=== PATIENT | female | born 1950 | race African-American/Black ===

== ENCOUNTER 2017-05-28 13:53 | Inpatient (IN) | payer MEDICARE, MEDICAID ==
[~2017-05-28] VITALS: Ht 165.1 cm; Wt 93.5 kg
[~2017-05-28 13:53] MED LIST: ASA; B12; CRESTOR; DIOVAN; FOLIC ACID; HYDRALAZINE; RAMIPRIL; RENVELA
[2017-05-28] MEDS ORDERED: MORPHINE SULFATE 4 MG/ML CPJ (NOT FOR IM USE) IV STA (15:19)
[2017-05-28] MEDS ORDERED: ONDANSETRON HCL 4MG/2ML VIAL IV STA (15:19)
[2017-05-28 16:08] LABS: BASOPHILS % 0.4 % (0.0-2.0); EOSINOPHILS % 1.2 % (0.0-5.0); HEMATOCRIT. 30.1 % (36.0-48.0); HEMOGLOBIN. 9.7 g/dL (12.0-16.0); MEAN CORPUSCULAR VOLUME 87.2 fL (81.0-99.0); MEAN PLATELET VOLUME 7.9 fl (7.4-10.4); NEUTROPHILS % 79.4 % (40.0-76.0); PLATELET 213 x1000/uL (130-400); RED BLOOD CELL COUNT 3.46 mill/uL (4.2-5.4); RED CELL DISTRIBUTION WIDTH 19.9 % (11.6-14.6)
[2017-05-28 16:11] LABS: INR 1.1; PARTIAL THROMBOPLASTIN TIME 28.4 sec (23.4-31.0)
[2017-05-28] MEDS ORDERED: MORPHINE SULFATE 4 MG/ML CPJ (NOT FOR IM USE) IV ONE (17:00)
[2017-05-28] MEDS ORDERED: NITROGLYCERIN 0.4MG TABLET SL SL PRN (19:15)
[2017-05-28] MEDS ORDERED: LORAZEPAM 2MG/ML CPJ IV PRN (19:15)
[2017-05-28] MEDS ORDERED: SODIUM POLYSTYRENE SULFONATE 15 G/60 ML BOT PO NR (19:15)
[2017-05-28] MEDS ORDERED: GUAIFENESIN 200MG/10ML SUGAR FREE UDC PO PRN (19:15)
[2017-05-28] MEDS ORDERED: IPRATROPIUM/ALBUTEROL 0.5-3(2.5)MG/3ML NEB INH PRN (19:15)
[2017-05-28] MEDS ORDERED: ACETAMINOPHEN 325MG TABLET PO PRN (19:15)
[2017-05-28] MEDS ORDERED: MAGNESIUM/ALUMINUM HYDROXIDE/SIMETHICONE 30ML UDC PO PRN (19:15)
[2017-05-28] MEDS ORDERED: DIPHENHYDRAMINE 50MG/ML VIAL IV PRN (19:15)
[2017-05-28] MEDS ORDERED: CLONIDINE 0.1MG TABLET PO PRN (19:15)
[2017-05-28] MEDS ORDERED: ONDANSETRON HCL 4MG/2ML VIAL IV PRN (19:15)
[2017-05-28] MEDS ORDERED: DOCUSATE SODIUM 100MG CAPSULE PO PRN (19:15)
[2017-05-28] MEDS ORDERED: TRAMADOL 50MG TABLET PO PRN (19:32)
[2017-05-28] MEDS ORDERED: NA PHOS,M-B/NA PHOS,DI-BA ENEMA 118ML PR PRN (20:00)
[2017-05-28] MEDS ORDERED: INSULIN REGULAR (HUMULIN R) UD 100 UNITS/ML SYR IV ONE (20:30)
[2017-05-28] MEDS ORDERED: ZOLPIDEM TARTRATE 5MG TABLET PO PRN (20:30)
[2017-05-28] MEDS ORDERED: DEXTROSE 50% WATER 50ML SYRINGE IV ONE (20:30)
[2017-05-28] MEDS: MORPHINE SULFATE 4 MG/ML CPJ (NOT FOR IM USE) IV PRN (20:57)
[2017-05-28 23:16] VITALS: BP 100/58
[2017-05-28 23:21] VITALS: BP 100/58
[2017-05-28] MEDS ORDERED: FOLI-43 PO (23:37)
[2017-05-28] MEDS ORDERED: DOCU-138 PO (23:37)
[2017-05-28] MEDS ORDERED: ASPI-986 PO (23:37)
[2017-05-28] MEDS ORDERED: SEVE800T8 PO (23:39)
[2017-05-29] MEDS: MORPHINE SULFATE 4 MG/ML CPJ (NOT FOR IM USE) IV PRN ×4 (02:06→21:29)
[2017-05-29 04:00] VITALS: BP 98/55
[2017-05-29] MEDS ORDERED: DIPHENHYDRAMINE 50MG/ML VIAL IV SCH (06:45)
[2017-05-29] MEDS: SEVELAMER CARBONATE 800 MG TABLET PO SCH ×3 (07:58→18:48)
[2017-05-29 08:00] VITALS: BP 143/81
[2017-05-29] MEDS ORDERED: SEVELAMER CARBONATE 800 MG TABLET PO SCH (08:10)
[2017-05-29] MEDS: LISINOPRIL 40MG TABLET PO SCH (09:00)
[2017-05-29] MEDS: AMLODIPINE 10MG TABLET PO SCH (09:00)
[2017-05-29] MEDS: FAMOTIDINE 20MG/2ML VIAL IV SCH (09:26)
[2017-05-29] MEDS: DIPHENHYDRAMINE 50MG/ML VIAL IV PRN (09:26)
[2017-05-29] MEDS ORDERED: METHADONE HCL 10MG TABLET PO PRN (11:00)
[2017-05-29 12:00] VITALS: BP 98/45
[2017-05-29] MEDS: FOLIC ACID/VITAMIN B COMP W-C TABLET PO SCH (13:06)
[2017-05-29] MEDS: ENOXAPARIN 40MG/0.4ML SYR SUBCUT SCH (13:07)
[2017-05-29 14:56] VITALS: BP 103/52
[2017-05-29 16:00] VITALS: BP 106/60
[2017-05-29] MEDS: CINACALCET HCL 30MG TABLET PO SCH (18:49)
[2017-05-29 20:00] VITALS: BP 100/52
[2017-05-29] MEDS ORDERED: EPOETIN ALFA 10000UNITS/ML VIAL SUBCUT SCH (21:00)
[2017-05-29] MEDS: ATORVASTATIN CALCIUM 10MG TABLET PO SCH (21:24)
[2017-05-30 00:05] VITALS: BP 118/68
[2017-05-30] MEDS: MORPHINE SULFATE 4 MG/ML CPJ (NOT FOR IM USE) IV PRN ×3 (03:06→17:18)
[2017-05-30 04:00] VITALS: BP 105/56
[2017-05-30 08:00] VITALS: BP 108/51
[2017-05-30] MEDS: LISINOPRIL 40MG TABLET PO SCH (09:00)
[2017-05-30] MEDS: SEVELAMER CARBONATE 800 MG TABLET PO SCH ×3 (09:13→17:58)
[2017-05-30] MEDS: FOLIC ACID/VITAMIN B COMP W-C TABLET PO SCH (09:13)
[2017-05-30] MEDS: AMLODIPINE 10MG TABLET PO SCH (09:14)
[2017-05-30] MEDS: ENOXAPARIN 40MG/0.4ML SYR SUBCUT SCH (09:19)
[2017-05-30] MEDS: FAMOTIDINE 20MG/2ML VIAL IV SCH (09:44)
[2017-05-30 12:00] VITALS: BP 97/48
[2017-05-30 16:00] VITALS: BP 138/69
[2017-05-30] MEDS: CINACALCET HCL 30MG TABLET PO SCH (18:12)
[2017-05-30 20:00] VITALS: BP 105/65
[2017-05-30] MEDS: ATORVASTATIN CALCIUM 10MG TABLET PO SCH (20:48)
[2017-05-31] VITALS: BP 100/57
[2017-05-31] MEDS: MORPHINE SULFATE 4 MG/ML CPJ (NOT FOR IM USE) IV PRN ×3 (01:45→20:05)
[2017-05-31 04:00] VITALS: BP 110/60
[2017-05-31] MEDS: DIPHENHYDRAMINE 50MG/ML VIAL IV PRN (07:08)
[2017-05-31 07:42] LABS: HEMATOCRIT 30.7 % (36.0-48.0); HEMOGLOBIN 9.6 g/dL (12.0-16.0); MEAN CORPUSCULAR HEMOGLOBIN 27.4 pg (28.0-32.0); MEAN CORPUSCULAR VOLUME 87.4 fL (81.0-99.0); PLATELET 198 x1000/uL (130-400); RED BLOOD CELL COUNT 3.51 mill/uL (4.2-5.4); RED CELL DISTRIBUTION WIDTH 20.1 % (11.6-14.6)
[2017-05-31 08:00] VITALS: BP 122/58
[2017-05-31] MEDS: SEVELAMER CARBONATE 800 MG TABLET PO SCH ×3 (08:10→18:16)
[2017-05-31] MEDS: AMLODIPINE 10MG TABLET PO SCH (09:00)
[2017-05-31] MEDS: LISINOPRIL 40MG TABLET PO SCH (09:00)
[2017-05-31] MEDS: ENOXAPARIN 40MG/0.4ML SYR SUBCUT SCH (11:58)
[2017-05-31] MEDS: FOLIC ACID/VITAMIN B COMP W-C TABLET PO SCH (11:58)
[2017-05-31 12:00] VITALS: BP 140/87
[2017-05-31] MEDS: FAMOTIDINE 20MG/2ML VIAL IV SCH (12:23)
[2017-05-31] MEDS: CINACALCET HCL 30MG TABLET PO SCH (18:15)
[2017-05-31 20:00] VITALS: BP 111/71
[2017-05-31] MEDS: ATORVASTATIN CALCIUM 10MG TABLET PO SCH (20:05)
[2017-05-31] MEDS ORDERED: EPOETIN ALFA 4000UNITS/ML VIAL SUBCUT SCH (21:00)
[2017-06-01] VITALS: BP 105/51
[2017-06-01] MEDS: MORPHINE SULFATE 4 MG/ML CPJ (NOT FOR IM USE) IV PRN ×4 (03:17→21:18)
[2017-06-01 04:00] VITALS: BP 108/68
[2017-06-01 08:00] VITALS: BP 140/80
[2017-06-01] MEDS: FOLIC ACID/VITAMIN B COMP W-C TABLET PO SCH (08:30)
[2017-06-01] MEDS: SEVELAMER CARBONATE 800 MG TABLET PO SCH ×3 (08:30→17:55)
[2017-06-01] MEDS: ENOXAPARIN 40MG/0.4ML SYR SUBCUT SCH (08:30)
[2017-06-01] MEDS: FAMOTIDINE 20MG/2ML VIAL IV SCH (08:31)
[2017-06-01] MEDS: LISINOPRIL 40MG TABLET PO SCH (08:31)
[2017-06-01] MEDS: AMLODIPINE 10MG TABLET PO SCH (08:31)
[2017-06-01 12:00] VITALS: BP 97/48
[2017-06-01 16:00] VITALS: BP 103/59
[2017-06-01] MEDS: CINACALCET HCL 30MG TABLET PO SCH (18:03)
[2017-06-01 20:00] VITALS: BP 124/80
[2017-06-01] MEDS: ATORVASTATIN CALCIUM 10MG TABLET PO SCH (21:18)
[2017-06-02] VITALS: BP 106/61
[2017-06-02 04:00] VITALS: BP 109/50
[2017-06-02] MEDS: MORPHINE SULFATE 4 MG/ML CPJ (NOT FOR IM USE) IV PRN ×3 (04:41→15:25)
[2017-06-02 06:55] LABS: BASOPHILS % 0.7 % (0.0-2.0); EOSINOPHILS % 2.7 % (0.0-5.0); HEMATOCRIT. 30.5 % (36.0-48.0); HEMOGLOBIN. 9.4 g/dL (12.0-16.0); LYMPHOCYTES % 15.7 % (20.0-50.0); MEAN CORPUSCULAR HEMOGLOBIN 27.1 pg (28.0-32.0); MEAN CORPUSCULAR VOLUME 88.1 fL (81.0-99.0); MEAN PLATELET VOLUME 8.3 fl (7.4-10.4); MONOCYTES % 11.3 % (2.0-8.0); NEUTROPHILS % 69.6 % (40.0-76.0); PLATELET 202 x1000/uL (130-400); RED BLOOD CELL COUNT 3.46 mill/uL (4.2-5.4); RED CELL DISTRIBUTION WIDTH 20.3 % (11.6-14.6)
[2017-06-02 08:01] VITALS: BP 118/49
[2017-06-02] MEDS: FAMOTIDINE 20MG/2ML VIAL IV SCH (08:34)
[2017-06-02] MEDS: FOLIC ACID/VITAMIN B COMP W-C TABLET PO SCH (08:34)
[2017-06-02] MEDS: ENOXAPARIN 40MG/0.4ML SYR SUBCUT SCH (08:35)
[2017-06-02] MEDS: LISINOPRIL 40MG TABLET PO SCH (08:35)
[2017-06-02] MEDS: SEVELAMER CARBONATE 800 MG TABLET PO SCH ×2 (08:35→13:25)
[2017-06-02] MEDS: AMLODIPINE 10MG TABLET PO SCH (08:35)
[2017-06-02 12:00] VITALS: BP 106/50
[2017-06-02 16:11] VITALS: BP 114/55
[2017-06-02 16:13] VITALS: BP 114/55
== END 2017-06-02 17:20 | DRG 535 ==
LOC: ER 14:23 → SUPCPDRO 19:15 → 7WST 20:24 → ENRESERV 21:41
PROVIDERS: ADMIT Internal Medicine; ATTEND Internal Medicine
DX: S32.591A Other specified fracture of right pubis, initial encounter for closed fracture (principal); I50.33 Acute on chronic diastolic (congestive) heart failure; E87.0 Hyperosmolality and hypernatremia; N18.6 End stage renal disease; N25.81 Secondary hyperparathyroidism of renal origin; I13.2 Hypertensive heart and chronic kidney disease with heart failure and with stage 5 chronic kidney disease, or end stage renal disease; W01.0XXA Fall on same level from slipping, tripping and stumbling without subsequent striking against object, initial encounter; Y93.01 Activity, walking, marching and hiking; E21.3 Hyperparathyroidism, unspecified; D63.1 Anemia in chronic kidney disease; E66.9 Obesity, unspecified; Z82.49 Family history of ischemic heart disease and other diseases of the circulatory system; Z90.710 Acquired absence of both cervix and uterus; Z83.3 Family history of diabetes mellitus; Z99.2 Dependence on renal dialysis; Z68.34 Body mass index [BMI] 34.0-34.9, adult; Y92.89 Other specified places as the place of occurrence of the external cause; Y99.8 Other external cause status; E87.5 Hyperkalemia
CPT/HCPCS: 36415; 71010; 73522; 73552; 73700; 80048; 80061; 83036; 83970; 85025; 85027; 85610; 85730; 93005; 93306; 93970; 96374; 96375; 96376; 97116; 97162; 99285; J0885; J1200; J1650; J1815; J2270; J2405; J3490; J7030

== ENCOUNTER 2017-06-02 17:30 | Inpatient (IN) | payer MEDICARE, MEDICAID ==
[~2017-06-02] VITALS: Ht 163.8 cm; Wt 93.9 kg
[~2017-06-02 17:30] MED LIST changes: -ASA; +ASPI-986 PO; -B12; -CRESTOR; -DIOVAN; +DOCU-138 PO; +FOLI-43 PO; -FOLIC ACID; -HYDRALAZINE; -RAMIPRIL; -RENVELA; +SEVE800T8 PO
[2017-06-02 18:00] VITALS: BP 107/68
[2017-06-02] MEDS ORDERED: LORAZEPAM 1MG TABLET PO PRN (18:45)
[2017-06-02] MEDS ORDERED: NITROGLYCERIN 0.4MG TABLET SL SL PRN (18:45)
[2017-06-02] MEDS ORDERED: DOCUSATE SODIUM 100MG CAPSULE PO PRN (18:45)
[2017-06-02] MEDS ORDERED: ACETAMINOPHEN 650MG/20.3ML UDC PO PRN (18:45)
[2017-06-02] MEDS ORDERED: HYDROCODONE/ACETAMINOPHEN 5/325MG TABLET PO PRN (18:45)
[2017-06-02] MEDS ORDERED: GUAIFENESIN 200MG/10ML SUGAR FREE UDC PO PRN (18:45)
[2017-06-02] MEDS ORDERED: DIPHENHYDRAMINE 50MG CAPSULE PO PRN ×2 (18:45)
[2017-06-02] MEDS ORDERED: ZOLPIDEM TARTRATE 5MG TABLET PO PRN (18:45)
[2017-06-02] MEDS ORDERED: MAGNESIUM/ALUMINUM HYDROXIDE/SIMETHICONE 30ML UDC PO PRN (18:45)
[2017-06-02] MEDS ORDERED: CLONIDINE 0.1MG TABLET PO PRN (18:45)
[2017-06-02] MEDS ORDERED: IPRATROPIUM/ALBUTEROL 0.5-3(2.5)MG/3ML NEB HHN PRN (18:45)
[2017-06-02] MEDS ORDERED: NA PHOS,M-B/NA PHOS,DI-BA ENEMA 118ML PR PRN (18:45)
[2017-06-02] MEDS ORDERED: ACETAMINOPHEN 325MG TABLET PO PRN (19:06)
[2017-06-02 19:13] LABS: BASOPHILS % 0.7 % (0.0-2.0); CARBON DIOXIDE 24 mEq/L (21-32); CHLORIDE 98 mEq/L (98-107); EOSINOPHILS % 2.8 % (0.0-5.0); HEMATOCRIT. 28.9 % (36.0-48.0); HEMOGLOBIN. 8.9 g/dL (12.0-16.0); LYMPHOCYTES % 15.3 % (20.0-50.0); MEAN CORPUSCULAR HEMOGLOBIN 27.3 pg (28.0-32.0); MEAN CORPUSCULAR VOLUME 88.5 fL (81.0-99.0); MONOCYTES % 9.6 % (2.0-8.0); NEUTROPHILS % 71.6 % (40.0-76.0); PLATELET 202 x1000/uL (130-400); RED BLOOD CELL COUNT 3.26 mill/uL (4.2-5.4); RED CELL DISTRIBUTION WIDTH 19.6 % (11.6-14.6)
[2017-06-02] MEDS ORDERED: LORAZEPAM 0.5MG TABLET PO PRN (19:30)
[2017-06-02 20:00] VITALS: BP 118/56
[2017-06-02] MEDS: HYDROCODONE/ACETAMINOPHEN 5/325MG TABLET PO PRN (21:07)
[2017-06-03] MEDS: HYDROCODONE/ACETAMINOPHEN 5/325MG TABLET PO PRN ×3 (02:17→21:42)
[2017-06-03] MEDS: ONDANSETRON HCL 4MG TABLET PO PRN ×3 (06:57→21:12)
[2017-06-03 08:00] VITALS: BP 109/61
[2017-06-03] MEDS: ENOXAPARIN 40MG/0.4ML SYR SUBCUT SCH (08:16)
[2017-06-03] MEDS: LISINOPRIL 40MG TABLET PO SCH (08:16)
[2017-06-03] MEDS: SEVELAMER CARBONATE 800 MG TABLET PO SCH ×3 (08:16→17:10)
[2017-06-03] MEDS ORDERED: SEVELAMER CARBONATE 800 MG TABLET PO SCH (09:00)
[2017-06-03] MEDS ORDERED: ZEMPLAR XX SCH (10:00)
[2017-06-03 10:01] LABS: PHOSPHORUS 5.2 mg/dL (2.5-4.9)
[2017-06-03 10:30] VITALS: BP 138/79
[2017-06-03] MEDS: DIPHENHYDRAMINE 50MG/ML VIAL IV PRN (16:43)
[2017-06-03] MEDS: DOCUSATE SODIUM 100MG CAPSULE PO SCH (17:10)
[2017-06-03 20:00] VITALS: BP 120/60
[2017-06-03] MEDS ORDERED: EPOETIN ALFA 10000UNITS/ML VIAL SUBCUT SCH ×2 (21:00→22:30)
[2017-06-03] MEDS ORDERED: EPOETIN ALFA 4000UNITS/ML VIAL SUBCUT SCH (21:00)
[2017-06-03] MEDS: PARICALCITOL 5 MCG/ML 1ML IV PRN (21:42)
[2017-06-04] MEDS: PANTOPRAZOLE 40MG DR TABLET PO SCH (06:37)
[2017-06-04 08:00] VITALS: BP 108/63
[2017-06-04] MEDS: DOCUSATE SODIUM 100MG CAPSULE PO SCH ×2 (08:08→16:21)
[2017-06-04] MEDS: SEVELAMER CARBONATE 800 MG TABLET PO SCH ×3 (08:08→16:21)
[2017-06-04] MEDS: ENOXAPARIN 40MG/0.4ML SYR SUBCUT SCH (08:09)
[2017-06-04] MEDS: LISINOPRIL 40MG TABLET PO SCH (08:12)
[2017-06-04] MEDS: HYDROCODONE/ACETAMINOPHEN 5/325MG TABLET PO PRN ×3 (08:45→20:10)
[2017-06-04] MEDS ORDERED: PARICALCITOL 5 MCG/ML 1ML IV ONE (10:00)
[2017-06-04 14:45] VITALS: BP 118/67
[2017-06-04 20:00] VITALS: BP 105/49
[2017-06-05] MEDS: HYDROCODONE/ACETAMINOPHEN 5/325MG TABLET PO PRN ×4 (01:25→21:21)
[2017-06-05] MEDS: PANTOPRAZOLE 40MG DR TABLET PO SCH (06:52)
[2017-06-05 07:18] LABS: BASOPHILS % 0.8 % (0.0-2.0); EOSINOPHILS % 3.4 % (0.0-5.0); HEMATOCRIT. 26.5 % (36.0-48.0); HEMOGLOBIN. 8.3 g/dL (12.0-16.0); LYMPHOCYTES % 15.3 % (20.0-50.0); NEUTROPHILS % 66.5 % (40.0-76.0); PLATELET 195 x1000/uL (130-400); RED BLOOD CELL COUNT 3.08 mill/uL (4.2-5.4)
[2017-06-05 07:30] LABS: PHOSPHORUS 5.2 mg/dL (2.5-4.9)
[2017-06-05 08:00] VITALS: BP_SYST 124; BP_DIAS 64; BP_DIAS 67
[2017-06-05] MEDS: DOCUSATE SODIUM 100MG CAPSULE PO SCH ×2 (08:39→17:00)
[2017-06-05] MEDS: ENOXAPARIN 40MG/0.4ML SYR SUBCUT SCH (08:40)
[2017-06-05] MEDS: LISINOPRIL 40MG TABLET PO SCH (08:41)
[2017-06-05] MEDS: SEVELAMER CARBONATE 800 MG TABLET PO SCH ×3 (08:41→21:00)
[2017-06-05] MEDS: LACTULOSE 20G/30ML UDC PO SCH (14:15)
[2017-06-05] MEDS: DIPHENHYDRAMINE 50MG/ML VIAL IV PRN (17:25)
[2017-06-05 20:00] VITALS: BP 123/62
[2017-06-05] MEDS: POLYETHYLENE GLYCOL 3350 (17GM) 1 DOSE PACK PO SCH (21:00)
[2017-06-05] MEDS ORDERED: EPOETIN ALFA 10000UNITS/ML VIAL SUBCUT SCH (21:00)
[2017-06-05] MEDS: PARICALCITOL 5 MCG/ML 1ML IV PRN (21:20)
[2017-06-05] MEDS: EPOETIN ALFA 4000UNITS/ML VIAL SUBCUT SCH (21:21)
[2017-06-06] MEDS: HYDROCODONE/ACETAMINOPHEN 5/325MG TABLET PO PRN ×3 (02:11→21:25)
[2017-06-06] MEDS: PANTOPRAZOLE 40MG DR TABLET PO SCH (06:26)
[2017-06-06 07:14] LABS: HEMATOCRIT. 27.3 % (36.0-48.0); HEMOGLOBIN. 8.7 g/dL (12.0-16.0); MEAN CORPUSCULAR HEMOGLOBIN 27.3 pg (28.0-32.0); PLATELET 209 x1000/uL (130-400); RED BLOOD CELL COUNT 3.17 mill/uL (4.2-5.4); RED CELL DISTRIBUTION WIDTH 19.3 % (11.6-14.6)
[2017-06-06 08:00] VITALS: BP 138/82
[2017-06-06 08:02] LABS: PLATELET ESTIMATE NORMAL
[2017-06-06] MEDS: SEVELAMER CARBONATE 800 MG TABLET PO SCH ×3 (08:16→16:47)
[2017-06-06] MEDS: LISINOPRIL 40MG TABLET PO SCH (08:17)
[2017-06-06] MEDS: FERROUS SULFATE 325MG TABLET PO SCH ×3 (08:17→16:47)
[2017-06-06] MEDS: ENOXAPARIN 40MG/0.4ML SYR SUBCUT SCH (08:18)
[2017-06-06] MEDS: LACTULOSE 20G/30ML UDC PO SCH (08:20)
[2017-06-06] MEDS: DOCUSATE SODIUM 100MG CAPSULE PO SCH ×2 (08:21→16:48)
[2017-06-06 20:00] VITALS: BP 144/76
[2017-06-06] MEDS: POLYETHYLENE GLYCOL 3350 (17GM) 1 DOSE PACK PO SCH (21:00)
[2017-06-07] MEDS: HYDROCODONE/ACETAMINOPHEN 5/325MG TABLET PO PRN ×3 (03:14→18:12)
[2017-06-07] MEDS: PANTOPRAZOLE 40MG DR TABLET PO SCH (06:35)
[2017-06-07 08:00] VITALS: BP 140/71
[2017-06-07] MEDS: LACTULOSE 20G/30ML UDC PO SCH (09:00)
[2017-06-07] MEDS: ENOXAPARIN 40MG/0.4ML SYR SUBCUT SCH (09:00)
[2017-06-07] MEDS ORDERED: PARICALCITOL 5 MCG/ML 1ML IV SCH (09:00)
[2017-06-07] MEDS: FERROUS SULFATE 325MG TABLET PO SCH ×3 (09:06→16:29)
[2017-06-07] MEDS: LISINOPRIL 40MG TABLET PO SCH (09:07)
[2017-06-07] MEDS: DOCUSATE SODIUM 100MG CAPSULE PO SCH ×2 (09:07→16:29)
[2017-06-07] MEDS: SEVELAMER CARBONATE 800 MG TABLET PO SCH ×3 (09:07→16:30)
[2017-06-07] MEDS: DIPHENHYDRAMINE 50MG/ML VIAL IV PRN (18:54)
[2017-06-07] MEDS ORDERED: HEPARIN SODIUM 1,000 UNIT/1ML VIAL IV NR (19:00)
[2017-06-07 20:00] VITALS: BP 157/73
[2017-06-07] MEDS ORDERED: ZOLPIDEM TARTRATE 5MG TABLET PO PRN (20:00)
[2017-06-07] MEDS ORDERED: HYDROCODONE/ACETAMINOPHEN 5/325MG TABLET PO PRN (20:00)
[2017-06-07] MEDS ORDERED: LORAZEPAM 0.5MG TABLET PO PRN (20:00)
[2017-06-07] MEDS: POLYETHYLENE GLYCOL 3350 (17GM) 1 DOSE PACK PO SCH (21:00)
[2017-06-07] MEDS: EPOETIN ALFA 4000UNITS/ML VIAL SUBCUT SCH (22:59)
[2017-06-07] MEDS: PARICALCITOL 5 MCG/ML 1ML IV PRN (22:59)
[2017-06-08] MEDS: HYDROCODONE/ACETAMINOPHEN 5/325MG TABLET PO PRN ×3 (00:20→20:24)
[2017-06-08] MEDS: PANTOPRAZOLE 40MG DR TABLET PO SCH (06:54)
[2017-06-08 07:38] LABS: HEMATOCRIT. 27.8 % (36.0-48.0); HEMOGLOBIN. 8.9 g/dL (12.0-16.0); MEAN CORPUSCULAR HEMOGLOBIN 27.4 pg (28.0-32.0); MEAN CORPUSCULAR VOLUME 85.6 fL (81.0-99.0); MEAN PLATELET VOLUME 7.5 fl (7.4-10.4); PLATELET 233 x1000/uL (130-400); RED BLOOD CELL COUNT 3.25 mill/uL (4.2-5.4); RED CELL DISTRIBUTION WIDTH 19.5 % (11.6-14.6)
[2017-06-08 08:00] VITALS: BP 113/67
[2017-06-08] MEDS: SEVELAMER CARBONATE 800 MG TABLET PO SCH ×3 (08:21→17:32)
[2017-06-08] MEDS: LISINOPRIL 40MG TABLET PO SCH (08:23)
[2017-06-08] MEDS: DOCUSATE SODIUM 100MG CAPSULE PO SCH ×2 (08:24→17:33)
[2017-06-08] MEDS: ENOXAPARIN 40MG/0.4ML SYR SUBCUT SCH (08:24)
[2017-06-08] MEDS: FERROUS SULFATE 325MG TABLET PO SCH ×3 (08:24→17:33)
[2017-06-08] MEDS: LACTULOSE 20G/30ML UDC PO SCH (08:27)
[2017-06-08 09:11] LABS: 25-HYDROXY VITAMIN D3 14 ng/mL (.)
[2017-06-08] MEDS ORDERED: ERGOCALCIFEROL 50000UNITS CAPSULE PO SCH (12:15)
[2017-06-08 14:09] LABS: PLATELET ESTIMATE NORMAL
[2017-06-08 20:00] VITALS: BP 110/51
[2017-06-08] MEDS: POLYETHYLENE GLYCOL 3350 (17GM) 1 DOSE PACK PO SCH (20:20)
[2017-06-09] MEDS: PANTOPRAZOLE 40MG DR TABLET PO SCH (06:06)
[2017-06-09 08:00] VITALS: BP 148/64
[2017-06-09] MEDS: LACTULOSE 20G/30ML UDC PO SCH (09:00)
[2017-06-09] MEDS: SEVELAMER CARBONATE 800 MG TABLET PO SCH ×3 (09:02→16:25)
[2017-06-09] MEDS: DOCUSATE SODIUM 100MG CAPSULE PO SCH ×2 (09:02→16:25)
[2017-06-09] MEDS: LISINOPRIL 40MG TABLET PO SCH (09:02)
[2017-06-09] MEDS: FERROUS SULFATE 325MG TABLET PO SCH ×3 (09:02→16:25)
[2017-06-09] MEDS: ENOXAPARIN 40MG/0.4ML SYR SUBCUT SCH (09:03)
[2017-06-09] MEDS: HYDROCODONE/ACETAMINOPHEN 5/325MG TABLET PO PRN ×2 (09:04→20:28)
[2017-06-09 20:00] VITALS: BP 131/61
[2017-06-09] MEDS: POLYETHYLENE GLYCOL 3350 (17GM) 1 DOSE PACK PO SCH (20:25)
[2017-06-10] MEDS: HYDROCODONE/ACETAMINOPHEN 5/325MG TABLET PO PRN ×3 (04:26→17:16)
[2017-06-10 07:57] VITALS: BP 144/61
[2017-06-10] MEDS: LACTULOSE 20G/30ML UDC PO SCH (09:00)
[2017-06-10] MEDS: DOCUSATE SODIUM 100MG CAPSULE PO SCH ×2 (09:25→17:15)
[2017-06-10] MEDS: FERROUS SULFATE 325MG TABLET PO SCH ×3 (09:25→17:15)
[2017-06-10] MEDS: SEVELAMER CARBONATE 800 MG TABLET PO SCH ×3 (09:26→17:14)
[2017-06-10] MEDS: FAMOTIDINE 20MG TABLET PO SCH (09:26)
[2017-06-10] MEDS: LISINOPRIL 40MG TABLET PO SCH (09:27)
[2017-06-10] MEDS: ENOXAPARIN 40MG/0.4ML SYR SUBCUT SCH (09:28)
[2017-06-10 19:00] VITALS: BP 137/63
[2017-06-10] MEDS: POLYETHYLENE GLYCOL 3350 (17GM) 1 DOSE PACK PO SCH (21:00)
[2017-06-10] MEDS: DIPHENHYDRAMINE 50MG/ML VIAL IV PRN (21:07)
[2017-06-10] MEDS ORDERED: HEPARIN SODIUM 1,000 UNIT/1ML VIAL IV NR (22:00)
[2017-06-11] MEDS: EPOETIN ALFA 4000UNITS/ML VIAL SUBCUT SCH (00:13)
[2017-06-11] MEDS: HYDROCODONE/ACETAMINOPHEN 5/325MG TABLET PO PRN ×4 (00:17→20:48)
[2017-06-11] MEDS: PARICALCITOL 5 MCG/ML 1ML IV PRN (01:53)
[2017-06-11 03:04] VITALS: BP 120/70
[2017-06-11 06:53] LABS: BASOPHILS % 0.9 % (0.0-2.0); EOSINOPHILS % 2.3 % (0.0-5.0); HEMATOCRIT. 29.1 % (36.0-48.0); HEMOGLOBIN. 9.1 g/dL (12.0-16.0); LYMPHOCYTES % 16.2 % (20.0-50.0); MEAN CORPUSCULAR HEMOGLOBIN 26.9 pg (28.0-32.0); MEAN CORPUSCULAR VOLUME 85.5 fL (81.0-99.0); MEAN PLATELET VOLUME 7.6 fl (7.4-10.4); MONOCYTES % 12.9 % (2.0-8.0); NEUTROPHILS % 67.7 % (40.0-76.0); PLATELET 253 x1000/uL (130-400); RED CELL DISTRIBUTION WIDTH 19.8 % (11.6-14.6)
[2017-06-11 08:00] VITALS: BP 120/61
[2017-06-11 08:10] LABS: PHOSPHORUS 3.1 mg/dL (2.5-4.9)
[2017-06-11] MEDS: SEVELAMER CARBONATE 800 MG TABLET PO SCH ×3 (08:13→18:05)
[2017-06-11] MEDS: FERROUS SULFATE 325MG TABLET PO SCH ×3 (08:14→18:04)
[2017-06-11] MEDS: DOCUSATE SODIUM 100MG CAPSULE PO SCH ×2 (08:14→18:04)
[2017-06-11] MEDS: LACTULOSE 20G/30ML UDC PO SCH (08:14)
[2017-06-11] MEDS: FAMOTIDINE 20MG TABLET PO SCH (08:14)
[2017-06-11] MEDS: LISINOPRIL 40MG TABLET PO SCH (08:14)
[2017-06-11] MEDS: ENOXAPARIN 40MG/0.4ML SYR SUBCUT SCH (08:14)
[2017-06-11 20:00] VITALS: BP 122/70
[2017-06-11] MEDS: POLYETHYLENE GLYCOL 3350 (17GM) 1 DOSE PACK PO SCH (20:48)
[2017-06-12] MEDS: HYDROCODONE/ACETAMINOPHEN 5/325MG TABLET PO PRN ×3 (02:59→20:30)
[2017-06-12 08:04] VITALS: BP 154/86
[2017-06-12] MEDS: LACTULOSE 20G/30ML UDC PO SCH (08:04)
[2017-06-12] MEDS: SEVELAMER CARBONATE 800 MG TABLET PO SCH ×3 (08:06→17:00)
[2017-06-12] MEDS: FAMOTIDINE 20MG TABLET PO SCH (08:07)
[2017-06-12] MEDS: DOCUSATE SODIUM 100MG CAPSULE PO SCH ×2 (08:07→16:50)
[2017-06-12] MEDS: FERROUS SULFATE 325MG TABLET PO SCH ×3 (08:07→16:50)
[2017-06-12] MEDS: LISINOPRIL 40MG TABLET PO SCH (08:08)
[2017-06-12] MEDS: ENOXAPARIN 40MG/0.4ML SYR SUBCUT SCH (08:09)
[2017-06-12] MEDS: DIPHENHYDRAMINE 50MG/ML VIAL IV PRN (15:36)
[2017-06-12] MEDS ORDERED: LORAZEPAM 0.5MG TABLET PO PRN (16:00)
[2017-06-12] MEDS ORDERED: HYDROCODONE/ACETAMINOPHEN 5/325MG TABLET PO PRN (16:00)
[2017-06-12 20:00] VITALS: BP 109/56
[2017-06-12] MEDS: PARICALCITOL 5 MCG/ML 1ML IV PRN (20:29)
[2017-06-12] MEDS: POLYETHYLENE GLYCOL 3350 (17GM) 1 DOSE PACK PO SCH (20:30)
[2017-06-12] MEDS ORDERED: ZOLPIDEM TARTRATE 5MG TABLET PO PRN (21:00)
[2017-06-13] MEDS: HYDROCODONE/ACETAMINOPHEN 5/325MG TABLET PO PRN ×3 (04:05→15:50)
[2017-06-13 07:48] VITALS: BP 110/52
[2017-06-13] MEDS: LISINOPRIL 40MG TABLET PO SCH (09:00)
[2017-06-13] MEDS: LACTULOSE 20G/30ML UDC PO SCH (09:00)
[2017-06-13] MEDS: SEVELAMER CARBONATE 800 MG TABLET PO SCH ×3 (09:50→17:28)
[2017-06-13] MEDS: FAMOTIDINE 20MG TABLET PO SCH (09:51)
[2017-06-13] MEDS: DOCUSATE SODIUM 100MG CAPSULE PO SCH ×2 (09:51→17:28)
[2017-06-13] MEDS: ENOXAPARIN 40MG/0.4ML SYR SUBCUT SCH (09:51)
[2017-06-13 15:45] VITALS: BP 111/48
[2017-06-13 20:00] VITALS: BP 115/60
[2017-06-13] MEDS: POLYETHYLENE GLYCOL 3350 (17GM) 1 DOSE PACK PO SCH (21:00)
[2017-06-14] MEDS: HYDROCODONE/ACETAMINOPHEN 5/325MG TABLET PO PRN ×3 (00:02→16:53)
[2017-06-14 07:57] VITALS: BP 151/75
[2017-06-14] MEDS: LACTULOSE 20G/30ML UDC PO SCH (09:00)
[2017-06-14] MEDS: SEVELAMER CARBONATE 800 MG TABLET PO SCH ×3 (09:25→16:52)
[2017-06-14] MEDS: DOCUSATE SODIUM 100MG CAPSULE PO SCH ×2 (09:25→16:52)
[2017-06-14] MEDS: FAMOTIDINE 20MG TABLET PO SCH (09:25)
[2017-06-14] MEDS: LISINOPRIL 40MG TABLET PO SCH (09:25)
[2017-06-14] MEDS: ENOXAPARIN 40MG/0.4ML SYR SUBCUT SCH (09:26)
[2017-06-14 16:25] VITALS: BP 133/68
[2017-06-14 18:08] VITALS: BP 151/75
== END 2017-06-14 18:38 | disposition home or self-care (01) | DRG 535 ==
PROVIDERS: ADMIT Physical Medicine & Rehabilitation Spinal Cord Injury Medicine; ATTEND Internal Medicine
DX: S32.511A Fracture of superior rim of right pubis, initial encounter for closed fracture (principal); I50.33 Acute on chronic diastolic (congestive) heart failure; I13.2 Hypertensive heart and chronic kidney disease with heart failure and with stage 5 chronic kidney disease, or end stage renal disease; E44.1 Mild protein-calorie malnutrition; N18.6 End stage renal disease; E87.8 Other disorders of electrolyte and fluid balance, not elsewhere classified; E83.39 Other disorders of phosphorus metabolism; E87.1 Hypo-osmolality and hyponatremia; S32.591A Other specified fracture of right pubis, initial encounter for closed fracture; W01.0XXA Fall on same level from slipping, tripping and stumbling without subsequent striking against object, initial encounter; E78.00 Pure hypercholesterolemia, unspecified; D50.9 Iron deficiency anemia, unspecified; R26.9 Unspecified abnormalities of gait and mobility; R53.81 Other malaise; D63.8 Anemia in other chronic diseases classified elsewhere; E55.9 Vitamin D deficiency, unspecified; E66.9 Obesity, unspecified; Z99.2 Dependence on renal dialysis; Z90.710 Acquired absence of both cervix and uterus; Z68.35 Body mass index [BMI] 35.0-35.9, adult; Z79.899 Other long term (current) drug therapy
CPT/HCPCS: 36415; 80048; 80053; 80061; 82270; 82306; 82607; 82728; 82746; 83036; 83540; 83550; 83735; 84100; 84134; 84443; 84630; 85025; 93970; 97110; 97112; 97116; 97162; 97166; 97530; 97535; J0885; J1200; J1644; J1650; J2501; J7030; Q0162

== ENCOUNTER 2019-10-25 12:17 | Emergency (ER) | payer MEDICARE, MEDICAID ==
[~2019-10-25] VITALS: Ht 162.6 cm; Wt 53.0 kg
[2019-10-25] MEDS ORDERED: LORAZEPAM 2MG/ML CPJ IV ONE (13:15)
[2019-10-25] MEDS ORDERED: ETOMIDATE 2MG/ML 10ML VIAL IV ONE (13:15)
[2019-10-25] MEDS ORDERED: ONDANSETRON HCL 4MG/2ML INJ IV ONE ×2 (13:15→20:45)
[2019-10-25] MEDS ORDERED: MORPHINE SULFATE 4 MG/ML CPJ (NOT FOR IM USE) IV ONE ×3 (13:15→20:45)
[2019-10-25 17:02] LABS: HEMATOCRIT 22.3 % (36.0-48.0); HEMOGLOBIN 7.2 g/dL (12.0-16.0); MEAN CORPUSCULAR HEMOGLOBIN 34.3 pg (28.0-32.0); PLATELET 225 x1000/uL (130-400); RED BLOOD CELL COUNT 2.09 mill/uL (4.2-5.4)
[2019-10-25 17:04] LABS: CHLORIDE 103 mEq/L (98-107)
[2019-10-25 21:00] VITALS: BP 118/59
== END 2019-10-25 21:55 | disposition short-term general hospital (02) ==
LOC: ER 12:29
DX: S82.851A Displaced trimalleolar fracture of right lower leg, initial encounter for closed fracture (principal); E78.00 Pure hypercholesterolemia, unspecified; I10 Essential (primary) hypertension; Z79.899 Other long term (current) drug therapy; W18.30XA Fall on same level, unspecified, initial encounter; Y93.89 Activity, other specified; Y92.89 Other specified places as the place of occurrence of the external cause; Y99.8 Other external cause status
CPT/HCPCS: 27840; 36415; 73600; 73610; 80048; 84484; 85027; 96374; 96375; 96376; 99152; 99285; J2060; J2270; J2405; J3490

== ENCOUNTER 2020-11-07 19:12 | Inpatient (IN) | payer MEDICARE, MEDICAID ==
[~2020-11-07] VITALS: Ht 160 cm; Wt 83.9 kg
[2020-11-07] MEDS ORDERED: SODIUM CHLORIDE 0.9% 1,000 ML IV ONE (20:00)
[2020-11-07] MEDS ORDERED: NOREPINEPHRINE 8MG/250ML PMX 250 ML IV STA (20:18)
[2020-11-07 20:29] LABS: HEMATOCRIT. 23.8 % (36.0-48.0); HEMOGLOBIN. 7.1 g/dL (12.0-16.0); MEAN CORPUSCULAR VOLUME 137.6 fL (81.0-99.0); MEAN PLATELET VOLUME 7.2 fl (7.4-10.4); PLATELET 90 x1000/uL (130-400); RED BLOOD CELL COUNT 1.73 mill/uL (4.2-5.4); RED CELL DISTRIBUTION WIDTH 19.8 % (11.6-14.6)
[2020-11-07] MEDS ORDERED: NOREPINEPHRINE 8 MG in DEXTROSE 5% WATER 250 ML IV NR (20:30)
[2020-11-07] MEDS ORDERED: SODIUM BICARBONATE 8.4% 1 MEQ/ML 50ML SYR IV ONE (20:30)
[2020-11-07] MEDS ORDERED: CALCIUM CHLORIDE 1GM/10ML SYR IV ONE (20:30)
[2020-11-07] MEDS ORDERED: ALBUTEROL (0.083%) 2.5MG/3ML NEB HHN ONE (20:30)
[2020-11-07] MEDS ORDERED: DEXTROSE 50% WATER 50ML SYRINGE IV ONE ×3 (20:30→20:45)
[2020-11-07] MEDS ORDERED: INSULIN REGULAR (HUMULIN R) 300UNITS/3ML VIAL IV ONE (20:30)
[2020-11-07] MEDS ORDERED: SODIUM CHLORIDE 0.9% 1000ML BAG (SEPSIS BOLUS) IV ONE (20:30)
[2020-11-07 20:33] LABS: CHLORIDE 105 mEq/L (98-107)
[2020-11-07 20:38] LABS: ETHANOL BLOOD < 10 mg/dL
[2020-11-07 20:45] LABS: NUCLEATED RED BLOOD CELLS 13 /100 WBC; PLATELET ESTIMATE DECREASED
[2020-11-07] MEDS ORDERED: DEXT 10% WATER 1,000 ML IV ONE (20:45)
[2020-11-07] MEDS ORDERED: PIPERACILLIN/TAZ 3.375G PREMIX 50 ML IV NR (20:45)
[2020-11-07] MEDS ORDERED: DOPAMINE 400MG/250ML PREMIX 250 ML IV ONE (20:45)
[2020-11-07] MEDS ORDERED: PHENYLEPHRINE 50 MG in DEXT 5% WATER 245 ML IV STA (21:06)
[2020-11-07] MEDS ORDERED: PHENYLEPHRINE 50 MG in DEXTROSE 5% WATER 250 ML IV PRN (21:30)
[2020-11-07 21:33] LABS: PROTHROMBIN TIME > 100.0 sec (9.6-11.0)
[2020-11-07 21:35] LABS: INR > 10.0
[2020-11-07 21:59] LABS: BG BASE EXCESS -24.4 mmol/L (-2.0-2.0); BG CARBOXYHEMOGLOBIN 0.3 % (0.5-1.5); BG DEOXYHEMOGLOBIN 0.7 % (0.0-5.0); BG FRACTION INSPIRED OXYGEN 100; BG HCO3 ACT 6.1 mmol/L (22.0-26.0); BG METHEMOGLOBIN 0.3 % (0.0-1.5); BG OXYGEN SATURATION 99.3 % (92.0-98.5); BG OXYHEMOGLOBIN 98.7 % (94.0-97.0); BG PCO2 27.5 mmHg (35.0-45.0); BG PH 6.966 (7.350-7.450); BG PO2 287.7 mmHg (75.0-100.0); BG SAMPLE SITE LEFT RADIAL; BG TOTAL HEMOGLOBIN 10.9 g/dL (12.0-18.0); BG VENT MODE MASK - NRB
[2020-11-07] MEDS ORDERED: PHYTONADIONE 10MG/ML AMP SUBCUT NR (22:00)
[2020-11-07] MEDS ORDERED: VANCOMYCIN 1 G PREMIX 200 ML IV NR (22:00)
[2020-11-07] MEDS ORDERED: ETOMIDATE 2MG/ML 10ML VIAL IV ONE ×2 (22:25→22:30)
[2020-11-07] MEDS ORDERED: VECURONIUM BROMIDE 10 MG/VIAL IV ONE ×2 (22:25→22:30)
[2020-11-07] MEDS ORDERED: SODIUM CHLORIDE 0.9% 10ML VIAL ONE (22:25)
[2020-11-07] MEDS ORDERED: PROPOFOL 10MG/ML 100ML 100 ML IV ONE (22:30)
[2020-11-07] MEDS ORDERED: SODIUM BICARBONATE 8.4% 1 MEQ/ML 50ML SYR IV NR (22:30)
[2020-11-07] MEDS ORDERED: MIDAZOLAM HCL 100 MG in SODIUM CHLORIDE 0.9% 100 ML IV PRN (22:45)
[2020-11-07] MEDS ORDERED: MIDAZOLAM HCL 50 MG in DEXTROSE 5% WATER 40 ML IV ONE (22:45)
[2020-11-07] MEDS ORDERED: NOREPINEPHRINE 32 MG in DEXT 5% WATER 218 ML IV STA (22:48)
[2020-11-07] MEDS ORDERED: NOREPINEPHRINE 32 MG in DEXTROSE 5% WATER 250 ML IV PRN (23:00)
[2020-11-07] MEDS ORDERED: PANTOPRAZOLE SODIUM 40 MG/VIAL IV STA (23:18)
[2020-11-07] MEDS ORDERED: PANTOPRAZOLE 80 MG in SODIUM CHLORIDE 0.9% 100 ML IV STA (23:18)
[2020-11-07 23:28] LABS: BG BASE EXCESS -25.1 mmol/L (-2.0-2.0); BG CARBOXYHEMOGLOBIN 0.3 % (0.5-1.5); BG DEOXYHEMOGLOBIN 1.4 % (0.0-5.0); BG FRACTION INSPIRED OXYGEN 80; BG HCO3 ACT 6.2 mmol/L (22.0-26.0); BG METHEMOGLOBIN 0.5 % (0.0-1.5); BG OXYGEN SATURATION 98.6 % (92.0-98.5); BG OXYHEMOGLOBIN 97.8 % (94.0-97.0); BG PCO2 30.7 mmHg (35.0-45.0); BG PH 6.926 (7.350-7.450); BG PO2 207.3 mmHg (75.0-100.0); BG SAMPLE SITE LEFT RADIAL; BG VENT MODE VENT - AC
[2020-11-08] VITALS (92 sets, daily range): BP systolic 66–111; BP diastolic 29–79
[2020-11-08] MEDS ORDERED: SODIUM BICARBONATE 150 MEQ in SODIUM CHLORIDE 0.45% 1,000 ML IV ONE
[2020-11-08] MEDS ORDERED: ONDANSETRON HCL 4MG/2ML INJ IV PRN (00:30)
[2020-11-08] MEDS ORDERED: ACETAMINOPHEN 325MG TABLET PO PRN (00:30)
[2020-11-08] MEDS ORDERED: MIDAZOLAM HCL 100 MG in SODIUM CHLORIDE 0.9% 80 ML IV PRN (02:00)
[2020-11-08] MEDS ORDERED: FENTANYL CITRATE/PF 2,500 MCG in SODIUM CHLORIDE 0.9% 200 ML IV PRN (02:00)
[2020-11-08] MEDS: PHENYLEPHRINE 100 MG in DEXT 5% WATER 240 ML IV PRN ×3 (02:59→16:27)
[2020-11-08] MEDS: NOREPINEPHRINE 32 MG in DEXT 5% WATER 218 ML IV PRN ×3 (03:50→20:09)
[2020-11-08 07:03] LABS: HEMOGLOBIN. 12.3 g/dL (12.0-16.0); MEAN CORPUSCULAR HEMOGLOBIN 34.9 pg (28.0-32.0); MEAN CORPUSCULAR VOLUME 113.5 fL (81.0-99.0); PLATELET 86 x1000/uL (130-400); RED BLOOD CELL COUNT 3.53 mill/uL (4.2-5.4); RED CELL DISTRIBUTION WIDTH 29.9 % (11.6-14.6)
[2020-11-08 08:02] LABS: NUCLEATED RED BLOOD CELLS 32 /100 WBC
[2020-11-08 08:03] LABS: PLATELET ESTIMATE DECREASED
[2020-11-08] MEDS: PANTOPRAZOLE SODIUM 40 MG/VIAL IV SCH ×2 (09:12→16:26)
[2020-11-08] MEDS: SODIUM BICARBONATE 150 MEQ in DEXTROSE 5% WATER 1,000 ML IV SCH (10:04)
[2020-11-08] MEDS: VASOPRESSIN 20 UNIT in SODIUM CHLORIDE 0.9% 99 ML IV PRN ×2 (10:23→16:26)
[2020-11-08] MEDS ORDERED: OCTREOTIDE ACETATE 50 MCG/ML 1ML IV NR (10:30)
[2020-11-08 10:36] LABS: BG CARBOXYHEMOGLOBIN 0.1 % (0.5-1.5); BG DEOXYHEMOGLOBIN 5.8 % (0.0-5.0); BG FRACTION INSPIRED OXYGEN 60; BG HCO3 ACT 8.6 mmol/L (22.0-26.0); BG METHEMOGLOBIN 0.3 % (0.0-1.5); BG OXYGEN SATURATION 94.2 % (92.0-98.5); BG OXYHEMOGLOBIN 93.8 % (94.0-97.0); BG PH 7.135 (7.350-7.450); BG SAMPLE SITE RIGHT BRACHIAL; BG TOTAL HEMOGLOBIN 12.6 g/dL (12.0-18.0); BG TOTAL RESPIRATORY RATE 28 b/min; BG VENT MODE VENT - AC
[2020-11-08] MEDS ORDERED: PIPERACILLIN/TAZOBACTAM 2.25 G in DEXTROSE 5% WATER 50 ML IV SCH (12:00)
[2020-11-08] MEDS: OCTREOTIDE 1,000 MCG in SODIUM CHLORIDE 0.9% 98 ML IV SCH (12:08)
[2020-11-08] MEDS ORDERED: VANCOMYCIN 1 G PREMIX 200 ML IV SCH (13:00)
[2020-11-08] MEDS: IPRATROPIUM/ALBUTEROL 0.5-3(2.5)MG/3ML NEB HHN SCH (15:55)
[2020-11-08] MEDS: EPINEPHRINE 10 MG in SODIUM CHLORIDE 0.9% 240 ML IV PRN ×2 (16:37→21:54)
[2020-11-08] MEDS ORDERED: HEPARIN SODIUM 1,000 UNIT/1ML VIAL IV NR (20:45)
[2020-11-08] MEDS: MEROPENEM 1,000 MG in SODIUM CHLORIDE 0.9% 100 ML IV SCH (21:57)
[2020-11-08] MEDS ORDERED: AMIKACIN SULFATE 400 MG in SODIUM CHLORIDE 0.9% 100 ML IV NR (22:00)
[2020-11-08] MEDS: HYDROCORTISONE SOD SUCCINATE 100 MG/2 ML VIAL IV SCH (22:39)
[2020-11-09] VITALS (95 sets, daily range): BP systolic 79–127; BP diastolic 49–74
[2020-11-09] MEDS: IPRATROPIUM/ALBUTEROL 0.5-3(2.5)MG/3ML NEB HHN SCH ×3 (00:30→16:20)
[2020-11-09] MEDS: EPINEPHRINE 10 MG in SODIUM CHLORIDE 0.9% 240 ML IV PRN ×4 (01:29→13:15)
[2020-11-09] MEDS: SODIUM BICARBONATE 150 MEQ in DEXTROSE 5% WATER 1,000 ML IV SCH ×2 (02:21→17:15)
[2020-11-09] MEDS: PHENYLEPHRINE 100 MG in DEXT 5% WATER 240 ML IV PRN ×3 (02:21→16:59)
[2020-11-09] MEDS: VASOPRESSIN 20 UNIT in SODIUM CHLORIDE 0.9% 99 ML IV PRN ×3 (02:27→20:31)
[2020-11-09] MEDS: NOREPINEPHRINE 32 MG in DEXT 5% WATER 218 ML IV PRN ×3 (04:07→18:30)
[2020-11-09] MEDS: HYDROCORTISONE SOD SUCCINATE 100 MG/2 ML VIAL IV SCH ×3 (05:29→21:17)
[2020-11-09 06:51] LABS: HEMOGLOBIN. 12.4 g/dL (12.0-16.0); MEAN CORPUSCULAR HEMOGLOBIN 35.4 pg (28.0-32.0); MEAN CORPUSCULAR VOLUME 114.5 fL (81.0-99.0); MEAN PLATELET VOLUME 8.7 fl (7.4-10.4); RED BLOOD CELL COUNT 3.49 mill/uL (4.2-5.4); RED CELL DISTRIBUTION WIDTH 30.5 % (11.6-14.6)
[2020-11-09] MEDS: OCTREOTIDE 1,000 MCG in SODIUM CHLORIDE 0.9% 98 ML IV SCH ×2 (07:00→17:00)
[2020-11-09 07:33] LABS: PLATELET 46 x1000/uL (130-400)
[2020-11-09 07:57] LABS: CHLORIDE 94 mEq/L (98-107)
[2020-11-09 08:04] LABS: PHOSPHORUS 6.1 mg/dL (2.5-4.9); TOTAL IRON BINDING CAPACITY 73 ug/dL (250-450)
[2020-11-09 08:10] LABS: PROTHROMBIN TIME 68.1 sec (9.6-11.0)
[2020-11-09 08:15] LABS: INR 7.4
[2020-11-09] MEDS: PANTOPRAZOLE SODIUM 40 MG/VIAL IV SCH ×2 (08:41→17:15)
[2020-11-09] MEDS ORDERED: DEXTROSE 50% WATER 50ML SYRINGE IV NR (09:15)
[2020-11-09 09:27] LABS: BG BASE EXCESS -23.4 mmol/L (-2.0-2.0); BG CARBOXYHEMOGLOBIN 0.3 % (0.5-1.5); BG DEOXYHEMOGLOBIN 4.3 % (0.0-5.0); BG FRACTION INSPIRED OXYGEN 80; BG HCO3 ACT 5.5 mmol/L (22.0-26.0); BG METHEMOGLOBIN 0.4 % (0.0-1.5); BG OXYGEN SATURATION 95.7 % (92.0-98.5); BG PCO2 20.7 mmHg (35.0-45.0); BG PH 7.043 (7.350-7.450); BG PO2 104.4 mmHg (75.0-100.0); BG SAMPLE SITE RIGHT RADIAL; BG TOTAL HEMOGLOBIN 12.2 g/dL (12.0-18.0); BG VENT MODE VENT - AC
[2020-11-09] MEDS ORDERED: SODIUM BICARBONATE 8.4% 1 MEQ/ML 50ML SYR IV SCH (10:00)
[2020-11-09 10:03] LABS: NUCLEATED RED BLOOD CELLS 7 /100 WBC; PLATELET ESTIMATE MARKEDLY DECREASED
[2020-11-09 12:02] LABS: HEPATITIS B SURFACE ANTIGEN NEGATIVE
[2020-11-09 12:10] LABS: FERRITIN 1612 ng/mL (10-291)
[2020-11-09 12:31] LABS: HEPATITIS A AB IGM NEGATIVE (NEGATIVE)
[2020-11-09] MEDS ORDERED: VANCOMYCIN 500 MG PREMIX 100 ML IV SCH (14:00)
[2020-11-09 19:54] LABS: VITAMIN B12 SERUM >2000 pg/mL pg/mL (211-911)
[2020-11-09] MEDS: MEROPENEM 1,000 MG in SODIUM CHLORIDE 0.9% 100 ML IV SCH (20:46)
[2020-11-10] VITALS (68 sets, daily range): BP systolic 33–108; BP diastolic 18–62
[2020-11-10] MEDS ORDERED: CEFEPIME 2,000 MG in DEXT 5% WATER 100 ML IV SCH
[2020-11-10] MEDS: IPRATROPIUM/ALBUTEROL 0.5-3(2.5)MG/3ML NEB HHN SCH ×3 (00:35→16:05)
[2020-11-10] MEDS: PHENYLEPHRINE 100 MG in DEXT 5% WATER 240 ML IV PRN ×3 (01:16→15:30)
[2020-11-10] MEDS: OCTREOTIDE 1,000 MCG in SODIUM CHLORIDE 0.9% 98 ML IV SCH (03:00)
[2020-11-10] MEDS: NOREPINEPHRINE 32 MG in DEXT 5% WATER 218 ML IV PRN ×3 (04:07→17:00)
[2020-11-10] MEDS ORDERED: OCTREOTIDE 1,000 MCG in SODIUM CHLORIDE 0.9% 90 ML IV SCH (04:45)
[2020-11-10] MEDS: VASOPRESSIN 20 UNIT in SODIUM CHLORIDE 0.9% 99 ML IV PRN ×2 (05:16→13:58)
[2020-11-10] MEDS: HYDROCORTISONE SOD SUCCINATE 100 MG/2 ML VIAL IV SCH ×2 (05:29→13:58)
[2020-11-10 05:58] LABS: CHLORIDE 88 mEq/L (98-107)
[2020-11-10 06:01] LABS: HEMOGLOBIN. 11.4 g/dL (12.0-16.0); MEAN CORPUSCULAR HEMOGLOBIN 34.5 pg (28.0-32.0); MEAN CORPUSCULAR VOLUME 109.1 fL (81.0-99.0); MEAN PLATELET VOLUME 11.7 fl (7.4-10.4); RED CELL DISTRIBUTION WIDTH 30.2 % (11.6-14.6)
[2020-11-10 06:15] LABS: PLATELET 21 x1000/uL (130-400)
[2020-11-10] MEDS ORDERED: DEXTROSE 50% WATER 50ML SYRINGE IV PRN ×3 (07:30→09:30)
[2020-11-10] MEDS: PANTOPRAZOLE SODIUM 40 MG/VIAL IV SCH (08:51)
[2020-11-10 09:01] LABS: BG BASE EXCESS -22.3 mmol/L (-2.0-2.0); BG CARBOXYHEMOGLOBIN 0.3 % (0.5-1.5); BG DEOXYHEMOGLOBIN 2.9 % (0.0-5.0); BG FRACTION INSPIRED OXYGEN 80; BG HCO3 ACT 6.6 mmol/L (22.0-26.0); BG METHEMOGLOBIN 0.3 % (0.0-1.5); BG OXYGEN SATURATION 97.1 % (92.0-98.5); BG OXYHEMOGLOBIN 96.5 % (94.0-97.0); BG PH 7.054 (7.350-7.450); BG PO2 118.6 mmHg (75.0-100.0); BG SAMPLE SITE RIGHT RADIAL; BG TOTAL HEMOGLOBIN 11.9 g/dL (12.0-18.0); BG VENT MODE VENT - AC
[2020-11-10] MEDS ORDERED: SODIUM BICARBONATE 8.4% 1 MEQ/ML 50ML SYR IV NR (09:15)
[2020-11-10] MEDS: SODIUM BICARBONATE 150 MEQ in DEXTROSE 5% WATER 1,000 ML IV SCH (09:30)
[2020-11-10] MEDS ORDERED: BLOOD SUGAR DIAGNOSTIC STRIP TEST SCH (12:00)
[2020-11-10 12:36] LABS: NUCLEATED RED BLOOD CELLS 6 /100 WBC
[2020-11-10 12:37] LABS: PLATELET ESTIMATE MARKEDLY DECREASED
[2020-11-10] MEDS ORDERED: MAGNESIUM 2 G PREMIX 50 ML IV NR (15:00)
[2020-11-10] MEDS ORDERED: MORPHINE SULFATE 250 MG in DEXT 5% WATER 240 ML IV PRN (16:00)
[2020-11-11 05:09] LABS: HIV SCREEN 4G Non Reactive (Non Reactive)
== END 2020-11-10 18:17 | disposition expired | DRG 871 ==
LOC: ER 19:12 → CVICU 23:44 → EDBEDREQ 23:47 → EDBEDREQTM 23:47 → ENRESERV 23:53
PROVIDERS: ADMIT Internal Medicine; ATTEND Internal Medicine
PROC: 5A1945Z Respiratory Ventilation, 24-96 Consecutive Hours (ICD-10-PCS; principal; 2020-11-07)
PROC: 0BH17EZ Insertion of Endotracheal Airway into Trachea, Via Natural or Artificial Opening (ICD-10-PCS; 2020-11-07)
PROC: 06HY33Z Insertion of Infusion Device into Lower Vein, Percutaneous Approach (ICD-10-PCS; 2020-11-07)
PROC: B54BZZA Ultrasonography of Right Lower Extremity Veins, Guidance (ICD-10-PCS; 2020-11-07)
PROC: 30233K1 Transfusion of Nonautologous Frozen Plasma into Peripheral Vein, Percutaneous Approach (ICD-10-PCS; 2020-11-07)
PROC: 30233N1 Transfusion of Nonautologous Red Blood Cells into Peripheral Vein, Percutaneous Approach (ICD-10-PCS; 2020-11-07)
PROC: 5A1D70Z Performance of Urinary Filtration, Intermittent, Less than 6 Hours Per Day (ICD-10-PCS; 2020-11-08)
PROC: 4A00X4Z Measurement of Central Nervous Electrical Activity, External Approach (ICD-10-PCS; 2020-11-09)
PROC: 5A1D70Z Performance of Urinary Filtration, Intermittent, Less than 6 Hours Per Day (ICD-10-PCS; 2020-11-09)
DX: A41.53 Sepsis due to Serratia (principal); E43 Unspecified severe protein-calorie malnutrition; G92 Toxic encephalopathy; N18.6 End stage renal disease; J96.01 Acute respiratory failure with hypoxia; R65.21 Severe sepsis with septic shock; J18.9 Pneumonia, unspecified organism; D62 Acute posthemorrhagic anemia; D61.818 Other pancytopenia; R18.8 Other ascites; J44.0 Chronic obstructive pulmonary disease with (acute) lower respiratory infection; K92.2 Gastrointestinal hemorrhage, unspecified; E87.1 Hypo-osmolality and hyponatremia; D68.9 Coagulation defect, unspecified; E87.4 Mixed disorder of acid-base balance; I12.0 Hypertensive chronic kidney disease with stage 5 chronic kidney disease or end stage renal disease; Z66 Do not resuscitate; R57.1 Hypovolemic shock; D53.9 Nutritional anemia, unspecified; K74.60 Unspecified cirrhosis of liver; B19.20 Unspecified viral hepatitis C without hepatic coma; D63.8 Anemia in other chronic diseases classified elsewhere; E16.2 Hypoglycemia, unspecified; E66.9 Obesity, unspecified; E78.00 Pure hypercholesterolemia, unspecified; E78.5 Hyperlipidemia, unspecified; E83.42 Hypomagnesemia; F17.210 Nicotine dependence, cigarettes, uncomplicated; E87.70 Fluid overload, unspecified; I34.1 Nonrheumatic mitral (valve) prolapse; Z51.5 Encounter for palliative care; G56.02 Carpal tunnel syndrome, left upper limb; W18.30XA Fall on same level, unspecified, initial encounter; R16.0 Hepatomegaly, not elsewhere classified; I73.9 Peripheral vascular disease, unspecified; K76.0 Fatty (change of) liver, not elsewhere classified; N28.1 Cyst of kidney, acquired; R57.0 Cardiogenic shock; W19.XXXA Unspecified fall, initial encounter; Y93.89 Activity, other specified; Y99.8 Other external cause status; Y92.009 Unspecified place in unspecified non-institutional (private) residence as the place of occurrence of the external cause; Z90.710 Acquired absence of both cervix and uterus; Z99.2 Dependence on renal dialysis; Z68.32 Body mass index [BMI] 32.0-32.9, adult; Z79.82 Long term (current) use of aspirin; Z79.899 Other long term (current) drug therapy; R34 Anuria and oliguria
CPT/HCPCS: 36415; 36600; 71045; 76700; 80048; 80053; 80061; 80320; 82140; 82248; 82375; 82607; 82728; 82746; 82805; 82962; 83540; 83550; 83605; 83615; 83735; 83880; 84100; 84145; 84484; 85018; 85025; 85044; 86705; 86709; 86803; 86850; 86900; 86920; 86927; 87070; 87077; 87106; 87186; 87340; 87389; 93005; 93306; 93923; 94002; 94003; 94640; 95816; 96365; 99291; C9113; J0278; J0692; J1265; J1720; J1815; J2185; J2250; J2354; J2370; J2543; J2704; J3370; J3430; J3475; J3490; J7030; J7050; J7060; J7070; P9016; P9017; A4315; G0480